=== PATIENT | female | born 1960 | race Two or more races ===

== ENCOUNTER 2019-03-29 21:49 | Emergency (ER) | payer OTHER ==
[~2019-03-29] VITALS: Ht 152.4 cm; Wt 55.8 kg
[2019-03-29 22:10] VITALS: BP 139/80
[2019-03-29] MEDS ORDERED: TDAP [DIPH/PERTUSSIS/TET] 0.5 ML VIAL IM ONE ×2 (22:30→22:38)
== END 2019-03-29 23:01 | disposition home or self-care (01) ==
LOC: ER 21:57
DX: S01.81XA Laceration without foreign body of other part of head, initial encounter (principal); W18.09XA Striking against other object with subsequent fall, initial encounter; Y93.89 Activity, other specified; Y92.89 Other specified places as the place of occurrence of the external cause; Y99.8 Other external cause status
CPT/HCPCS: 12013; 90471; 90715; 99283; A6403